=== PATIENT | male | born 1955 | race Caucasian/White ===

== ENCOUNTER 2020-06-13 14:03 | Inpatient (IN) | payer MEDICARE, MEDICAID ==
[~2020-06-13] VITALS: Ht 175.3 cm; Wt 87.5 kg
[2020-06-13 21:08] LABS: HEMATOCRIT. 41.9 % (42.0-52.0); HEMOGLOBIN. 14.4 g/dL (14.0-18.0); MEAN CORPUSCULAR HEMOGLOBIN 31.5 pg (28.0-32.0); MEAN CORPUSCULAR VOLUME 91.7 fL (80.0-94.0); MEAN PLATELET VOLUME 8.5 fl (7.4-10.4); PLATELET 251 x1000/uL (130-400); RED BLOOD CELL COUNT 4.57 mill/uL (4.7-6.1); RED CELL DISTRIBUTION WIDTH 14.3 % (11.6-14.6)
[2020-06-13 21:12] LABS: CHLORIDE 110 mEq/L (98-107)
[2020-06-13 21:41] LABS: CLARITY URINE CLOUDY (CLEAR); COLOR URINE YELLOW (YELLOW); KETONES URINE TRACE (NEGATIVE); LEUKOCYTE ESTERASE URINE TRACE (NEGATIVE); NITRITE URINE NEGATIVE (NEGATIVE); OCCULT BLOOD URINE NEGATIVE (NEGATIVE); PROTEIN URINE 1+ (NEGATIVE); SPECIFIC GRAVITY URINE 1.019 (1.005-1.030); UROBILINOGEN URINE 0.2 E.U./dL (0.2-1.0)
[2020-06-13 22:07] LABS: PLATELET ESTIMATE NORMAL
[2020-06-14] MEDS ORDERED: CEFTRIAXONE 1 G PREMIX 50 ML IV ONE (00:15)
[2020-06-14] MEDS ORDERED: ASPIRIN 325MG EC TABLET PO ONE (01:00)
[2020-06-14] MEDS ORDERED: ONDANSETRON HCL 4MG/2ML INJ IV PRN (09:15)
[2020-06-14] MEDS ORDERED: IPRATROPIUM/ALBUTEROL 0.5-3(2.5)MG/3ML NEB HHN PRN (09:15)
[2020-06-14 12:15] VITALS: BP 154/87
[2020-06-14 12:28] VITALS: BP 151/92
[2020-06-14] MEDS: AMLODIPINE 10MG TABLET PO SCH (12:59)
[2020-06-14 15:55] LABS: LDL CHOLESTEROL 102 mg/dL (5-100)
[2020-06-14 15:56] LABS: HDL CHOLESTEROL 62 mg/dL (40-59); T4 FREE 1.09 ng/dL (0.76-1.46)
[2020-06-14 16:00] VITALS: BP_SYST 135; BP_SYST 139; BP_SYST 145; BP_DIAS 80; BP_DIAS 82; BP_DIAS 84
[2020-06-14 16:03] LABS: CREATINE KINASE MB FRACTION 9.1 ng/mL (0.5-3.6)
[2020-06-14] MEDS ORDERED: ENOXAPARIN 40MG/0.4ML SYR SUBCUT SCH (17:00)
[2020-06-14] MEDS: SODIUM CHLORIDE 0.9% 1,000 ML IV SCH (17:41)
[2020-06-14 20:38] VITALS: BP 138/80
[2020-06-14] MEDS: ENOXAPARIN 40MG/0.4ML SYR SUBCUT SCH (21:57)
[2020-06-15 00:23] VITALS: BP 134/84
[2020-06-15 00:25] LABS: CREATINE KINASE MB FRACTION 4.5 ng/mL (0.5-3.6)
[2020-06-15 04:00] VITALS: BP 162/107
[2020-06-15 07:37] LABS: CREATINE KINASE MB FRACTION 4.1 ng/mL (0.5-3.6)
[2020-06-15 08:00] VITALS: BP 149/88
[2020-06-15] MEDS: AMLODIPINE 10MG TABLET PO SCH (09:05)
[2020-06-15] MEDS: SODIUM CHLORIDE 0.9% 1,000 ML IV SCH (09:06)
[2020-06-15 12:00] VITALS: BP 155/90
[2020-06-15 13:04] LABS: *AMPHETAMINES SCREEN URINE NEGATIVE (NEGATIVE); *BARBITURATES SCREEN URINE NEGATIVE (NEGATIVE)
[2020-06-15 13:05] LABS: *BENZODIAZEPINES SCREEN URINE NEGATIVE (NEGATIVE); *COCAINE SCREEN URINE NEGATIVE (NEGATIVE); METHADONE URINE SCREEN NEGATIVE (NEGATIVE); OPIATES URINE SCREEN NEGATIVE (NEGATIVE); PHENCYCLIDINE URINE SCREEN NEGATIVE (NEGATIVE)
[2020-06-15 13:06] LABS: CANNABINOID URINE SCREEN NEGATIVE (NEGATIVE)
[2020-06-15] MEDS ORDERED: FLUT1DIS3 INH (13:47)
[2020-06-15] MEDS ORDERED: HYDR-4135 MT (13:47)
[2020-06-15] MEDS ORDERED: AMLO10TA80 MT (13:47)
[2020-06-15] MEDS ORDERED: ALBU18HF2 IH (13:47)
[2020-06-15 16:00] VITALS: BP 150/76
[2020-06-15 17:31] LABS: BASOPHILS % 0.5 % (0.0-2.0); EOSINOPHILS % 1.4 % (0.0-5.0); HEMATOCRIT. 40.8 % (42.0-52.0); HEMOGLOBIN. 13.9 g/dL (14.0-18.0); LYMPHOCYTES % 12.4 % (20.0-50.0); MEAN CORPUSCULAR HEMOGLOBIN 31.4 pg (28.0-32.0); MEAN CORPUSCULAR VOLUME 91.9 fL (80.0-94.0); MEAN PLATELET VOLUME 8.6 fl (7.4-10.4); MONOCYTES % 7.5 % (2.0-8.0); NEUTROPHILS % 78.2 % (40.0-76.0); PLATELET 234 x1000/uL (130-400); RED BLOOD CELL COUNT 4.44 mill/uL (4.7-6.1); RED CELL DISTRIBUTION WIDTH 14.2 % (11.6-14.6)
[2020-06-15 17:50] LABS: CHLORIDE 106 mEq/L (98-107)
[2020-06-15 20:00] VITALS: BP 155/86
[2020-06-15] MEDS: ENOXAPARIN 40MG/0.4ML SYR SUBCUT SCH (22:20)
[2020-06-16 08:00] VITALS: BP 159/94
[2020-06-16] MEDS: AMLODIPINE 10MG TABLET PO SCH (08:54)
[2020-06-16 12:00] VITALS: BP 161/102
[2020-06-16] MEDS: CLONIDINE 0.1MG TABLET PO PRN (13:39)
[2020-06-16 16:00] VITALS: BP 128/77
[2020-06-16 20:00] VITALS: BP_SYST 132; BP_SYST 136; BP_SYST 142; BP_DIAS 90; BP_DIAS 91; BP_DIAS 95
[2020-06-16] MEDS: ENOXAPARIN 40MG/0.4ML SYR SUBCUT SCH (20:42)
[2020-06-17] VITALS: BP 153/95
[2020-06-17 04:00] VITALS: BP 127/85
[2020-06-17 07:57] VITALS: BP 135/90
[2020-06-17] MEDS: AMLODIPINE 10MG TABLET PO SCH (08:14)
[2020-06-17 11:57] VITALS: BP_SYST 138; BP_SYST 139; BP_SYST 140; BP_DIAS 74; BP_DIAS 96; BP_DIAS 97
[2020-06-17 16:00] VITALS: BP 139/94
[2020-06-17 20:00] VITALS: BP 164/98
[2020-06-17] MEDS: ENOXAPARIN 40MG/0.4ML SYR SUBCUT SCH (21:34)
[2020-06-17] MEDS: CLONIDINE 0.1MG TABLET PO PRN (21:43)
[2020-06-18] VITALS: BP 118/80
[2020-06-18 04:00] VITALS: BP 145/99
[2020-06-18 08:00] VITALS: BP 145/84
[2020-06-18] MEDS: AMLODIPINE 10MG TABLET PO SCH (09:59)
[2020-06-18 12:00] VITALS: BP 139/86
[2020-06-18 16:00] VITALS: BP_SYST 131; BP_SYST 133; BP_SYST 134; BP_DIAS 75; BP_DIAS 80; BP_DIAS 82
[2020-06-18 20:00] VITALS: BP 131/83
[2020-06-18] MEDS: ENOXAPARIN 40MG/0.4ML SYR SUBCUT SCH (21:00)
[2020-06-19] VITALS (7 sets, daily range): BP systolic 136–157; BP diastolic 66–99
[2020-06-19] MEDS: AMLODIPINE 10MG TABLET PO SCH (08:55)
[2020-06-19] MEDS ORDERED: *PATIENT'S OWN MEDICATION STORAGE XX SCH (12:00)
[2020-06-19] MEDS: ACETAMINOPHEN 325MG TABLET PO PRN (12:08)
[2020-06-19] MEDS: ENOXAPARIN 40MG/0.4ML SYR SUBCUT SCH (20:17)
[2020-06-20] VITALS: BP 140/68
[2020-06-20 04:00] VITALS: BP 136/65
[2020-06-20 08:00] VITALS: BP 135/96
[2020-06-20] MEDS: AMLODIPINE 10MG TABLET PO SCH (08:12)
[2020-06-20] MEDS: ACETAMINOPHEN 325MG TABLET PO PRN (08:36)
[2020-06-20 12:00] VITALS: BP 126/66
[2020-06-20 16:00] VITALS: BP 139/84
[2020-06-20 20:00] VITALS: BP 150/82
[2020-06-20] MEDS: ENOXAPARIN 40MG/0.4ML SYR SUBCUT SCH (22:06)
[2020-06-21] VITALS: BP 130/85
[2020-06-21 04:00] VITALS: BP 144/74
[2020-06-21 08:00] VITALS: BP 139/84
[2020-06-21] MEDS: AMLODIPINE 10MG TABLET PO SCH (09:51)
[2020-06-21 11:36] VITALS: BP 129/79
[2020-06-21 15:39] VITALS: BP 134/81
[2020-06-21 20:00] VITALS: BP 132/83
[2020-06-21] MEDS: ENOXAPARIN 40MG/0.4ML SYR SUBCUT SCH (21:47)
[2020-06-22] VITALS: BP 140/78
[2020-06-22 04:00] VITALS: BP 137/87
[2020-06-22 08:00] VITALS: BP_SYST 118; BP_SYST 125; BP_SYST 140; BP_DIAS 100; BP_DIAS 78; BP_DIAS 81
[2020-06-22] MEDS: AMLODIPINE 10MG TABLET PO SCH (09:11)
[2020-06-22] MEDS: ACETAMINOPHEN 325MG TABLET PO PRN (09:41)
[2020-06-22 16:00] VITALS: BP 128/72
[2020-06-22 20:00] VITALS: BP 127/79
[2020-06-22] MEDS: ENOXAPARIN 40MG/0.4ML SYR SUBCUT SCH (20:30)
[2020-06-23] VITALS: BP 129/81
[2020-06-23 04:00] VITALS: BP 138/85
[2020-06-23 08:00] VITALS: BP 158/91
[2020-06-23] MEDS: AMLODIPINE 10MG TABLET PO SCH (08:26)
[2020-06-23] MEDS: ACETAMINOPHEN 325MG TABLET PO PRN (08:32)
== END 2020-06-23 11:20 | disposition left against medical advice (07) | DRG 73 ==
LOC: ER 14:03 → 6WST 23:42 → ENRESERV 06-14 08:44 → 6WST 06-18 12:59 → 4WST 06-19 11:10
PROVIDERS: ADMIT Internal Medicine; ATTEND Internal Medicine
DX: G90.8 Other disorders of autonomic nervous system (principal); N17.0 Acute kidney failure with tubular necrosis; F17.210 Nicotine dependence, cigarettes, uncomplicated; E87.8 Other disorders of electrolyte and fluid balance, not elsewhere classified; Z53.29 Procedure and treatment not carried out because of patient's decision for other reasons; I10 Essential (primary) hypertension; Z71.6 Tobacco abuse counseling; Z79.1 Long term (current) use of non-steroidal anti-inflammatories (NSAID); Z79.899 Other long term (current) drug therapy; Z20.828 Contact with and (suspected) exposure to other viral communicable diseases
CPT/HCPCS: 36415; 71045; 80048; 80053; 80061; 80305; 81003; 82550; 82553; 83036; 83880; 84439; 84443; 84484; 85025; 85379; 87426; 93005; 93306; 93880; 93970; 99285; J0696; J1650; J7030

== ENCOUNTER 2020-06-23 18:34 | Emergency (ER) | payer MEDICARE, MEDICAID ==
[~2020-06-23] VITALS: Ht 172.7 cm; Wt 75.0 kg
[~2020-06-23 18:34] MED LIST: ALBU18HF2 IH; AMLO10TA80 MT; FLUT1DIS3 INH; HYDR-4135 MT
[2020-06-23 18:38] VITALS: BP 178/100
[2020-06-23 21:22] LABS: BASOPHILS % 0.4 % (0.0-2.0); EOSINOPHILS % 0.4 % (0.0-5.0); HEMATOCRIT. 43.7 % (42.0-52.0); HEMOGLOBIN. 14.4 g/dL (14.0-18.0); LYMPHOCYTES % 8.3 % (20.0-50.0); MEAN CORPUSCULAR HEMOGLOBIN 30.4 pg (28.0-32.0); MEAN CORPUSCULAR VOLUME 92.4 fL (80.0-94.0); MEAN PLATELET VOLUME 8.5 fl (7.4-10.4); MONOCYTES % 6.9 % (2.0-8.0); PLATELET 251 x1000/uL (130-400); RED BLOOD CELL COUNT 4.73 mill/uL (4.7-6.1); RED CELL DISTRIBUTION WIDTH 14.5 % (11.6-14.6)
[2020-06-23 21:27] LABS: CHLORIDE 106 mEq/L (98-107)
[2020-06-23 21:30] LABS: PROTHROMBIN TIME 10.6 sec (9.6-11.0)
[2020-06-23 21:31] LABS: ETHANOL BLOOD < 10 mg/dL
== END 2020-06-24 08:44 | disposition left against medical advice (07) ==
LOC: ER 18:34 → CANBEDREQ 06-24 08:34 → ER 06-24 08:44
DX: G31.84 Mild cognitive impairment of uncertain or unknown etiology (principal); F29 Unspecified psychosis not due to a substance or known physiological condition; F17.210 Nicotine dependence, cigarettes, uncomplicated; E11.9 Type 2 diabetes mellitus without complications; I10 Essential (primary) hypertension; Z03.818 Encounter for observation for suspected exposure to other biological agents ruled out; Z59.0 Homelessness; Z75.1 Person awaiting admission to adequate facility elsewhere
CPT/HCPCS: 36415; 80048; 80076; 80307; 80320; 80329; 82140; 84484; 85025; 86592; 93005; 99285; G0480

== ENCOUNTER 2020-06-24 09:03 | Emergency (ER) | payer MEDICARE, MEDICAID ==
[~2020-06-24] VITALS: Ht 172.7 cm; Wt 70.0 kg
[2020-06-24 10:15] VITALS: BP 166/87
== END 2020-06-24 10:53 | disposition home or self-care (01) ==
LOC: ER 09:32
DX: M79.10 Myalgia, unspecified site (principal); Z59.0 Homelessness; I10 Essential (primary) hypertension; F17.200 Nicotine dependence, unspecified, uncomplicated; Z79.899 Other long term (current) drug therapy
CPT/HCPCS: 99281